=== PATIENT | female | born 1975 | race Caucasian/White ===

== ENCOUNTER 2016-08-04 14:00 | Emergency (ER) | payer OTHER | END 2016-08-04 15:15 | disposition home or self-care (01) | LOC: ED 14:00 | DX: M54.2 Cervicalgia (principal); F17.210 Nicotine dependence, cigarettes, uncomplicated ==

== ENCOUNTER 2016-08-06 05:18 | Emergency (ER) | payer OTHER ==
[2016-08-06 06:07] LABS: URINE APPEARANCE CLEAR; URINE BILIRUBIN NEGATIVE (NEGATIVE); URINE BLOOD TRACE (NEGATIVE); URINE COLOR YELLOW; URINE GLUCOSE (UA) NEGATIVE (NEGATIVE); URINE LEUKOCYTE ESTERASE NEGATIVE (NEGATIVE); URINE NITRITE NEGATIVE (NEGATIVE); URINE PROTEIN NEGATIVE (NEGATIVE); URINE UROBILINOGEN NORMAL (0-1 mg/dl)
[2016-08-06 06:14] LABS: URINE EPITHELIAL CELLS 0-1 /hpf; URINE WBC 0-1 /hpf
[2016-08-06 06:15] LABS: URINE BACTERIA 0
[2016-08-06 06:35] LABS: ABSOLUTE NEUTROPHIL COUNT 14.1 K/mm3 (1.8-7.7); BASO # 0.1 K/mm3 (0.0-0.2); BASO % 0.3 % (0.2-1.0); EOS % 0.2 % (0.9-2.9); HEMATOCRIT 45.5 % (37.0-47.0); HEMOGLOBIN 15.1 gm/l (12.0-16.0); IMM NEUT # 0.1 K/mm3 (0-0.2); IMM NEUT% 0.4 % (0-1); LYMPH # 3.2 (1.0-4.8); LYMPH % 17.2 % (15-45); MEAN CELL VOLUME 90.3 fl (81.0-99.0); MEAN CORPUSCULAR HGB CONC 33.2 g/dl (33.0-37.0); MEAN PLATELET VOLUME 9.8 fl (7.4-10.4); MONO # 1.1 (0.0-0.8); MONO % 6.1 % (4-12); NEUT % 75.8 % (43-75); PLATELET COUNT 272 K/mm3 (130-400); RED CELL DISTRIBUTION WIDTH 12.8 % (11.5-14.5)
[2016-08-06] MEDS ORDERED: ONDANSETRON 4 MG/2ML 2 ML VIAL ONE (06:39)
[2016-08-06] MEDS ORDERED: SODIUM CHLORIDE 0.9% 1,000 ML ONE (06:39)
[2016-08-06 06:47] LABS: ALB/GLOB RATIO 1.6 (>1.0); ALBUMIN 4.9 gm/dL (3.5-5.7); CALCIUM 9.8 mg/dL (8.6-10.3)
[2016-08-06] MEDS ORDERED: KETOROLAC TROMETHAMINE 30 MG/ML 1 ML VIAL ONE (07:30)
--- NOTE | 2016-08-06 09:40 | US ---
PELVIC COMPLETE, TRANSVAGINAL ECHOGRAPHY COMPARISON: None. HISTORY: 41 years old. Acute left lower quadrant pain. LMP 08/01/2015-now. . Appendectomy 2002 and right oophorectomy December 2015 for treatment of ovarian cyst. Technique: Transabdominal and transvaginal. FINDINGS: Uterus: 7.4 x 3.5 x 4.2 cm. There are at least 3 masses, after 5 x 4 x 7 mm. Endometrium: Normal thickness 3 min.. Right ovary: Removed. The Left ovary: 3.1 x 1.6 x 3.3 cm. Normal blood flow. Adnexa mass: None Fluid: None. IMPRESSION: 1. 3 small leiomyomas of the uterus. 2. Normal thickness of the endometrium. 3. Right oophorectomy. Normal left ovary. Preliminary report by [facility] radiologist Leyda Lucas MD 08/06/2016 at 07:13
== END 2016-08-06 08:07 | disposition home or self-care (01) ==
LOC: ED 05:18
DX: R10.2 Pelvic and perineal pain (principal); M54.5 Low back pain; F17.210 Nicotine dependence, cigarettes, uncomplicated
CPT/HCPCS: 84703; 85025; 80053; 81001; 76856; 76830; 99283 ×2; 96374; 96361; J2405; J7030